=== PATIENT | male | born 1980 | race Caucasian/White ===

== ENCOUNTER 2016-09-12 19:38 | Emergency (ER) | payer MEDICAID ==
[2016-09-12] MEDS ORDERED: DUONEB INH ONE ×2 (21:30→23:46)
[2016-09-12] MEDS ORDERED: METHYLPRED SOD SUCC 125 MG/2 ML VIAL ONE (23:39)
[2016-09-13] MEDS ORDERED: LEVOFLOXACIN 500 MG TAB ONE (00:58)
== END 2016-09-13 01:20 | disposition home or self-care (01) ==
LOC: ER 19:38
CPT/HCPCS: 36415; 71010; 80053; 82553; 83880; 84484; 85025; 93005; 94640; 96374

== ENCOUNTER 2016-09-23 15:44 | Inpatient (IN) | payer MEDICAID ==
[~2016-09-23] VITALS: Ht 177.8 cm; Wt 68.4 kg
[2016-09-23] MEDS ORDERED: SODIUM CHLORIDE 0.9% 100 ML IV ONE (18:05)
[2016-09-23] MEDS ORDERED: SODIUM CHLORIDE 0.9% 250 ML IV ONE (18:05)
[2016-09-23] MEDS ORDERED: CEFTRIAXONE 1 GM VIAL ONE (18:05)
[2016-09-23] MEDS ORDERED: AZITHROMYCIN 500 MG VIAL IV ONE (18:05)
[2016-09-23] MEDS ORDERED: ACETAMINOPHEN 325 MG TAB ONE (18:16)
[2016-09-23] MEDS ORDERED: NEB-ALBUTEROL 2.5 MG/3 ML INH PRN (18:45)
[2016-09-23] MEDS: NICOTINE 7 MG/24 HR TRANSDERM SCH (18:45)
[2016-09-23] MEDS: DUONEB INH SCH ×3 (19:00→22:42)
[2016-09-23] MEDS ORDERED: SALINE FLUSH 10 ML FLUSH PRN (19:00)
[2016-09-23] MEDS ORDERED: ONDANSETRON 4 MG VIAL IV PRN (19:00)
[2016-09-23 20:16] VITALS: BP_SYST 112; RESP 22; TEMP 97.6
[2016-09-23] MEDS: METHYLPRED SOD SUCC 40 MG VIAL IV SCH (21:25)
[2016-09-23] MEDS: SALINE FLUSH 10 ML FLUSH SCH (21:26)
[2016-09-23] MEDS: GABAPENTIN 600 MG TAB PO SCH (21:27)
[2016-09-23] MEDS: GUAIFENESIN ER 600 MG TABCR PO SCH (21:28)
[2016-09-23] MEDS: FLUOXETINE 20 MG CAP PO SCH (21:28)
[2016-09-23] MEDS: QUETIAPINE XR 200 MG TAB PO SCH (21:28)
[2016-09-23] MEDS: NEB-BROVANA 15 MCG/2 ML INH SCH (22:41)
[2016-09-23] MEDS: NEB-BUDESONIDE 0.5 MG INH SCH (22:41)
[2016-09-23 22:42] VITALS: RESP 18
[2016-09-24] VITALS (7 sets, daily range): BP systolic 120–131; RESP 18–20; TEMP 97.4–98.2; Ht 177.8 cm; Wt 68.4 kg
[2016-09-24] MEDS: METHYLPRED SOD SUCC 40 MG VIAL IV SCH ×3 (01:09→15:42)
[2016-09-24] MEDS: PANTOPRAZOLE 40 MG TAB PO SCH (06:36)
[2016-09-24] MEDS: SODIUM CHLORIDE 0.9% FLUSH BAG 500 ML IV SCH (06:36)
[2016-09-24] MEDS: NEB-BUDESONIDE 0.5 MG INH SCH ×2 (06:52→18:12)
[2016-09-24] MEDS: DUONEB INH SCH ×5 (06:52→22:09)
[2016-09-24] MEDS: NEB-BROVANA 15 MCG/2 ML INH SCH ×2 (06:52→18:11)
[2016-09-24] MEDS: CEFTRIAXONE 1 GM in SODIUM CHLORIDE 0.9% 50 ML IV SCH (09:02)
[2016-09-24] MEDS: NICOTINE 7 MG/24 HR TRANSDERM SCH (09:02)
[2016-09-24] MEDS: AZITHROMYCIN 500 MG in SODIUM CHLORIDE 0.9% 250 ML IV SCH (09:02)
[2016-09-24] MEDS: GABAPENTIN 600 MG TAB PO SCH ×3 (09:03→21:54)
[2016-09-24] MEDS: FLUOXETINE 20 MG CAP PO SCH (09:03)
[2016-09-24] MEDS: GUAIFENESIN ER 600 MG TABCR PO SCH ×2 (09:03→21:53)
[2016-09-24] MEDS: CYANOCOBA 500 MCG TAB PO SCH (09:03)
[2016-09-24] MEDS: SALINE FLUSH 10 ML FLUSH SCH ×2 (09:04→21:52)
[2016-09-24] MEDS ORDERED: MORPHINE 2 MG/ML SYR IV PRN (19:00)
[2016-09-24] MEDS: QUETIAPINE XR 200 MG TAB PO SCH (21:54)
[2016-09-25] VITALS (9 sets, daily range): BP systolic 112–129; RESP 18–26; TEMP 97.4–98.4
[2016-09-25] MEDS: METHYLPRED SOD SUCC 40 MG VIAL IV SCH ×3 (00:55→16:12)
[2016-09-25] MEDS: SODIUM CHLORIDE 0.9% FLUSH BAG 500 ML IV SCH (05:52)
[2016-09-25] MEDS: PANTOPRAZOLE 40 MG TAB PO SCH (05:52)
[2016-09-25] MEDS: DUONEB INH SCH ×5 (05:59→23:00)
[2016-09-25] MEDS: NEB-BROVANA 15 MCG/2 ML INH SCH ×2 (05:59→19:47)
[2016-09-25] MEDS: NEB-BUDESONIDE 0.5 MG INH SCH ×2 (05:59→19:47)
[2016-09-25] MEDS: NICOTINE 7 MG/24 HR TRANSDERM SCH (09:00)
[2016-09-25] MEDS: CEFTRIAXONE 1 GM in SODIUM CHLORIDE 0.9% 50 ML IV SCH (09:18)
[2016-09-25] MEDS: SALINE FLUSH 10 ML FLUSH SCH ×2 (09:18→21:57)
[2016-09-25] MEDS: GABAPENTIN 600 MG TAB PO SCH ×3 (09:20→21:58)
[2016-09-25] MEDS: GUAIFENESIN ER 600 MG TABCR PO SCH ×2 (09:20→21:58)
[2016-09-25] MEDS: CYANOCOBA 500 MCG TAB PO SCH (09:20)
[2016-09-25] MEDS: FLUOXETINE 20 MG CAP PO SCH (09:20)
[2016-09-25] MEDS: AZITHROMYCIN 500 MG in SODIUM CHLORIDE 0.9% 250 ML IV SCH (12:21)
[2016-09-25] MEDS: FLUCONAZOLE 100 MG in SODIUM CHLORIDE 0.9% 50 ML IV SCH (16:12)
[2016-09-25] MEDS ORDERED: MISSING DOSE XX ONE (16:20)
[2016-09-25] MEDS: QUETIAPINE XR 200 MG TAB PO SCH (21:57)
[2016-09-26] VITALS: RESP 17
[2016-09-26] MEDS: METHYLPRED SOD SUCC 40 MG VIAL IV SCH ×3 (01:15→16:50)
[2016-09-26 02:42] VITALS: BP_SYST 129; RESP 20; TEMP 97.4
[2016-09-26] MEDS: SODIUM CHLORIDE 0.9% FLUSH BAG 500 ML IV SCH ×2 (05:06→09:04)
[2016-09-26] MEDS: PANTOPRAZOLE 40 MG TAB PO SCH (06:26)
[2016-09-26] MEDS: DUONEB INH SCH ×4 (06:51→18:54)
[2016-09-26] MEDS: NEB-BROVANA 15 MCG/2 ML INH SCH ×2 (06:52→18:55)
[2016-09-26] MEDS: NEB-BUDESONIDE 0.5 MG INH SCH ×2 (06:52→18:54)
[2016-09-26 06:53] VITALS: RESP 15
[2016-09-26 07:50] VITALS: BP_SYST 117; RESP 20; TEMP 98
[2016-09-26] MEDS: NICOTINE 7 MG/24 HR TRANSDERM SCH (09:00)
[2016-09-26] MEDS: GABAPENTIN 600 MG TAB PO SCH ×3 (09:02→20:04)
[2016-09-26] MEDS: SALINE FLUSH 10 ML FLUSH SCH (09:02)
[2016-09-26] MEDS: CYANOCOBA 500 MCG TAB PO SCH (09:02)
[2016-09-26] MEDS: GUAIFENESIN ER 600 MG TABCR PO SCH (09:02)
[2016-09-26] MEDS: FLUOXETINE 20 MG CAP PO SCH (09:02)
[2016-09-26] MEDS: CEFTRIAXONE 1 GM in SODIUM CHLORIDE 0.9% 50 ML IV SCH (09:03)
[2016-09-26] MEDS: AZITHROMYCIN 500 MG in SODIUM CHLORIDE 0.9% 250 ML IV SCH (10:11)
[2016-09-26 11:29] VITALS: BP_SYST 119; RESP 18; TEMP 97.6
[2016-09-26] MEDS: FLUCONAZOLE 100 MG in SODIUM CHLORIDE 0.9% 50 ML IV SCH (13:08)
[2016-09-26 15:56] VITALS: BP_SYST 121; RESP 18; TEMP 97.8
[2016-09-26] MEDS ORDERED: DILAUDID 1 MG/ML AMP IV ONE (18:35)
== END 2016-09-26 20:57 | disposition short-term general hospital (02) | DRG 190 ==
LOC: ENRESERVDT → ENRESERVTM → ER 15:44 → ENPENDDIS 18:45 → EMR 18:45 → PCU 20:17
PROVIDERS: ADMIT Hospitalist; ATTEND Hospitalist
DX: J44.0 Chronic obstructive pulmonary disease with (acute) lower respiratory infection (principal); J96.01 Acute respiratory failure with hypoxia; J16.8 Pneumonia due to other specified infectious organisms; J44.1 Chronic obstructive pulmonary disease with (acute) exacerbation; F17.210 Nicotine dependence, cigarettes, uncomplicated; F41.9 Anxiety disorder, unspecified; F32.9 Major depressive disorder, single episode, unspecified; F60.2 Antisocial personality disorder; F19.10 Other psychoactive substance abuse, uncomplicated; B19.20 Unspecified viral hepatitis C without hepatic coma; Z76.5 Malingerer [conscious simulation]; R22.0 Localized swelling, mass and lump, head; Z91.19 Patient's noncompliance with other medical treatment and regimen
CPT/HCPCS: 36415; 36600; 70450; 71020; 80053; 82803; 85025; 87040; 87071; 94640; 94660; 94799; 96365; 96375; 99223; 99232; 99233